=== PATIENT | male | born 1970 | race Caucasian/White ===

== ENCOUNTER 2019-04-21 09:56 | Emergency (ER) | payer OTHER ==
[~2019-04-21] VITALS: Ht 176.5 cm; Wt 109.1 kg
[2019-04-21] MEDS ORDERED: FLOM0.4C39 PO (10:13)
[2019-04-21] MEDS ORDERED: NS 1,000 ML IV ONE (10:30)
[2019-04-21] MEDS ORDERED: ONDANSETRON 4MG/2ML VIAL (J2405) IV ONE (10:30)
[2019-04-21 10:54] LABS: BASO % 0.2 % (0.0-1.0); EOS % 0.1 % (0.0-3.0); HEMATOCRIT 38.2 % (42.0-52.0); LYMPH # 0.7 10^3/uL (1.5-5.0); LYMPH % 7.8 % (24.0-44.0); MEAN CORPUSCULAR HEMOGLOBIN 29.5 pg (27.0-33.0); MEAN CORPUSCULAR VOLUME 86.8 fl (80.0-96.0); MONO # 0.4 10^3/uL (0.0-0.8); MONO % 4.1 % (0.0-5.0); NEUTROPHILS # 7.5 10^3/uL (1.5-8.5); NEUTROPHILS % 87.3 % (36.0-66.0); PLATELET COUNT, AUTOMATED 190 10^3/uL (150-450); WHITE BLOOD COUNT 8.6 10^3/uL (4.0-10.0)
[2019-04-21] MEDS ORDERED: MORPHINE 4 MG/ML 1ML VIAL/SYRINGE (J2270) IV ONE (11:00)
[2019-04-21 11:23] LABS: BILIRUBIN,DIRECT 0.2 MG/DL (0.0-0.2); BILIRUBIN,TOTAL 0.5 MG/DL (0.2-1.0)
[2019-04-21 12:46] VITALS: BP 163/82
[2019-04-21] MEDS ORDERED: ONDA4TAB6 PO (12:47)
[2019-04-21] MEDS ORDERED: KETO10TAB PO (12:47)
[2019-04-21] MEDS ORDERED: NORC1TAB7 PO (12:47)
--- NOTE | 2019-04-21 17:20 | REP ---
Clinical: Right flank pain Technique: Axial noncontrast images from the lung bases to the pubic symphysis with coronal and sagittal re-formations. Findings: Mild acute right-sided obstructive uropathy with hydroureteronephrosis and perinephric/periureteral stranding secondary to a 2.5 mm calculus at the ureterovesicle junction (image [id number]). No further urinary tract calcification or obvious pathology noted. The liver, spleen, pancreas, gallbladder, and bilateral adrenal glands are normal. The enteric system is without obstruction or acute inflammatory process. Normal terminal ileum and appendix are identified in the right lower quadrant. Sigmoid diverticulosis noted without acute diverticulitis. Pelvis demonstrates relatively normal bladder and age appropriate prostate/seminal vesicles. No ascites. No free air. No adenopathy. Abdominal aorta without aneurysm. Musculoskeletal structures are intact. Impression: Acute right-sided obstructive uropathy with a 2.5 mm calculus approaching the ureterovesical junction. Electronically Signed by Trevon Veliz MD 04/21/2019 05:11 P
== END 2019-04-21 13:08 | disposition home or self-care (01) ==
LOC: EDBD 09:56 → M ED 09:56
DX: N20.0 Calculus of kidney (principal); N13.9 Obstructive and reflux uropathy, unspecified; R11.2 Nausea with vomiting, unspecified; Z79.899 Other long term (current) drug therapy
CPT/HCPCS: 74176; 80076; 83690; 85025; 96361; 96374; 96375; 99284; G0103; J2270; J2405

== ENCOUNTER 2019-09-30 07:20 | Day surgery (SDC) | payer OTHER ==
[~2019-09-30] VITALS: Ht 175.3 cm; Wt 108.0 kg
[~2019-09-30 07:20] MED LIST: FLOM0.4C39 PO; KETO10TAB PO; NORC1TAB7 PO; ONDA4TAB6 PO; TEST1GEL10 TOP
[2019-09-30] MEDS ORDERED: propofoL 200 MG/20 ML VIAL As Ordered ONE (07:40)
[2019-09-30] MEDS ORDERED: LIDOCAINE 2% 100MG/5ML SDV (FOR ANES.) As Ordered ONE (07:40)
--- NOTE | 2019-11-11 11:26 | ROOR ---
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 Procedure: Pre-Anesthesia Assessment: - Prior to the procedure, a History and Physical was performed, and patient medications and allergies were reviewed. The patient is competent. The risks and benefits of the procedure and the sedation options and risks were discussed with the patient. All questions were answered and informed consent was obtained. Patient identification and proposed procedure were verified by the physician, the nurse and the anesthesiologist in the endoscopy suite. Mental Status Examination: alert and oriented. Airway Examination: normal oropharyngeal airway and neck mobility. Respiratory Examination: clear to auscultation. CV Examination: normal. Prophylactic Antibiotics: The patient does not require prophylactic antibiotics. Prior Anticoagulants: The patient has taken no previous anticoagulant or antiplatelet agents. ASA Grade Assessment: II - A patient with mild systemic disease. After reviewing the risks and benefits, the patient was deemed in satisfactory condition to undergo the procedure. The anesthesia plan was to use monitored anesthesia care (MAC). Immediately prior to administration of medications, the patient was re-assessed for adequacy to receive sedatives. The heart rate, respiratory rate, oxygen saturations, blood pressure, adequacy of pulmonary ventilation, and response to care were monitored throughout the procedure. The physical status of the patient was re-assessed after the procedure. The Colonoscope was introduced through the anus and advanced to the cecum, identified by appendiceal orifice and ileocecal valve. The colonoscopy was performed without difficulty. The patient tolerated the procedure well. The quality of the bowel preparation was good. Findings: The perianal and digital rectal examinations were normal. Multiple small-mouthed diverticula were found in the sigmoid colon and descending colon. There was no evidence of diverticular bleeding. The entire examined colon appeared normal on direct and retroflexion views. Impression: - Mild diverticulosis in the sigmoid colon and in the descending colon. There was no evidence of diverticular bleeding. - The entire examined colon is normal on direct and retroflexion views. - No specimens collected. Recommendation: - Discharge patient to home (ambulatory). - Repeat colonoscopy in 10 years for screening purposes. Gavin Orosco MD Gavin Orosco MD 09/30/2019 8:02:15 AM Electronically signed by Gavin Orosco MD Number of Addenda: 0 Note Initiated On: 09/30/2019 7:34 AM Estimated Blood Loss: Estimated blood loss: none.
== END 2019-09-30 08:30 | disposition home or self-care (01) ==
LOC: M OPP 07:20
PROVIDERS: ATTEND Surgery
DX: Z12.11 Encounter for screening for malignant neoplasm of colon (principal); K57.30 Diverticulosis of large intestine without perforation or abscess without bleeding

== ENCOUNTER → 2020-02-18 | Outpatient (CLI) | payer SELFPAY | LOC: M LABSMTC 10:24 | PROVIDERS: ATTEND Pediatrics | DX: Z20.828 Contact with and (suspected) exposure to other viral communicable diseases (principal) ==

== ENCOUNTER 2023-05-08 11:36 | Day surgery (SDC) | payer OTHER ==
[~2023-05-08] VITALS: Ht 175.3 cm; Wt 113.2 kg
[2023-05-08] MEDS: NS 1,000 ML IV ONE (06:00)
[~2023-05-08 11:36] MED LIST changes: +CYAN500T14 PO; +DESC1TAB PO; +LIDOCAINE 2% 100MG/5ML SDV (FOR ANES.) As Ordered ONE; +PANT20TA6 PO; +THERTAB52 PO; +VITA-243 PO; +VITA100093 PO; +propofoL 200 MG/20 ML VIAL As Ordered ONE
[2023-05-08 12:36] VITALS: TEMP 97.6
[2023-05-08 12:55] VITALS: BP 118/72; O2SAT 96
== END 2023-05-08 13:26 | disposition home or self-care (01) ==
LOC: M OPP 11:36
PROVIDERS: ATTEND Surgery
DX: R10.13 Epigastric pain (principal); K21.00 Gastro-esophageal reflux disease with esophagitis, without bleeding; K29.50 Unspecified chronic gastritis without bleeding; G47.30 Sleep apnea, unspecified; Z90.49 Acquired absence of other specified parts of digestive tract; Z79.899 Other long term (current) drug therapy